=== PATIENT | male | born 1955 | race Caucasian/White ===

== ENCOUNTER 2018-03-22 15:19 | Inpatient (IN) | payer OTHER ==
[~2018-03-22] VITALS: Ht 182.9 cm; Wt 121.1 kg
[~2018-03-22 15:19] MED LIST: ACIPHEX 20 MG T20 MG PO; KEFLEX500 MG PO; KLONOPIN1 MG PO; LISINOPRIL10 MG
[2018-03-22 15:24] VITALS: BP 167/90
[2018-03-22] MEDS ORDERED: HYDROCHLOROTH12.5 M1 PO (15:29)
[2018-03-22] MEDS ORDERED: NORVASC10 MG PO (15:30)
[2018-03-22 15:47] LABS: ABSOLUTE BASOPHILS 0.1 thou/uL (0.0-0.2); ABSOLUTE EOSINOPHILS 0.1 thou/uL (0.0-0.7); ABSOLUTE LYMPHOCYTES 1.4 thou/uL (0.8-5.3); ABSOLUTE NEUTROPHILS 4.4 thou/uL (1.6-8.1); BASOPHILS 0.8 %; EOSINOPHILS 0.7 %; HEMATOCRIT 41.9 % (42.0-52.0); HEMOGLOBIN 15.1 gm/dL (14.0-18.0); LYMPHOCYTES 20.6 %; MCH 36.3 pg (26.0-34.0); MCHC 35.9 g/dL (28.0-37.0); MCV 101.2 fL (80.0-100.0); MONOCYTES 14.7 %; MPV 7.6 fl. (7.2-11.1); NUCLEATED RBCS 0 /100WBC; PLATELET COUNT* 145 thou/uL (150-400); POLYS 63.2 %; RBC 4.14 mil/uL (4.50-6.00); RDW-CV 13.7 % (10.5-14.5)
[2018-03-22 16:06] LABS: ANION GAP 9 mmol/L (7-16); BUN 17 mg/dL (7-18); CALCIUM 8.7 mg/dL (8.5-10.1); CHLORIDE 88 mmol/L (98-107); CO2 26 mmol/L (21-32); CREATININE 0.8 mg/dL (0.6-1.3); GLUCOSE 103 mg/dL (70-99); SODIUM 123 mmol/L (136-145)
[2018-03-22 16:12] LABS: ALBUMIN 3.8 g/dL (3.4-5.0); ALKALINE PHOSPHATASE 64 U/L (46-116); LIPASE 86 U/L (73-393); NT-PRO BRAIN NAT PEPTIDE 35 pg/mL (<300); SGOT 106 U/L (15-37); SGPT 141 U/L (30-65); TOTAL BILIRUBIN 1.4 mg/dL (<0.1-1.0); TOTAL PROTEIN 7.6 g/dL (6.4-8.2); TROPONIN-I LEVEL <0.06 ng/mL (<0.06)
[2018-03-22 17:58] LABS: POTASSIUM 3.9 mmol/L (3.5-5.1)
[2018-03-22 17:59] LABS: CALCIUM 8.5 mg/dL (8.5-10.1); CREATININE 0.9 mg/dL (0.6-1.3)
[2018-03-22 18:34] VITALS: BP 120/63
--- NOTE | 2018-03-22 18:45 | NUR ---
PT TO ROOM 221 VIA CART. PT ORIENTED TO ROOM. CALL LIGHT WITHIN REACH. NSR. DENIES CP
[2018-03-22 18:52] VITALS: BP 142/106
[2018-03-22 19:36] LABS: POTASSIUM 4.1 mmol/L (3.5-5.1)
[2018-03-23] VITALS: BP 140/78
[2018-03-23 04:46] LABS: HEMATOCRIT 40.7 % (42.0-52.0); HEMOGLOBIN 14.6 gm/dL (14.0-18.0); MCH 37.1 pg (26.0-34.0); MCHC 35.9 g/dL (28.0-37.0); MCV 103.3 fL (80.0-100.0); MPV 7.9 fl. (7.2-11.1); RBC 3.94 mil/uL (4.50-6.00); RDW-CV 14.2 % (10.5-14.5); WBC 6.2 thou/uL (4.0-11.0)
[2018-03-23 04:47] VITALS: BP 149/75
[2018-03-23 05:12] LABS: ALBUMIN 3.7 g/dL (3.4-5.0); CALCIUM 8.7 mg/dL (8.5-10.1); CREATININE 0.8 mg/dL (0.6-1.3); MAGNESIUM 2.4 mg/dL (1.8-2.4); POTASSIUM 4.3 mmol/L (3.5-5.1); TOTAL BILIRUBIN 1.5 mg/dL (<0.1-1.0); TOTAL PROTEIN 7.2 g/dL (6.4-8.2)
--- NOTE | 2018-03-23 05:53 | NUR ---
PATIENT CONT. TO BE SR ON THE MONITOR. TROPONINS COMPLETE AND NEG. DENIES ANY FURTHER COMPLAINTS OF PAIN OR DISCOMFORT. NO SIGN OF DISTRESS.
[2018-03-23 08:30] VITALS: BP 133/72
--- NOTE | 2018-03-23 10:40 | EKG ---
[place] [address] ELECTROCARDIOGRAM REPORT Name: TOBIAS ANAYA Room: [address] IN [facility].#: [id number] Admission: 03/22/18 Attend Phys: Floridalma Smith MD Discharge: Date of : 59 Report #: [id number] THIS REPORT FOR: //name// [facility] ED Test Date: 2018-03-22 Test Time: 15:24:15 Pat Name: TOBIAS ANAYA Department: Room: Gender: M Rail Filler: Josie BENZ : 1955 Requested By: Rashid Paul Order Number: [id number] MD: Lei Mendiola Measurements Intervals Mathews Rate: 82 P: 36 ME: 167 QRS: 1 QRSD: 86 T: 46 QT: 376 QTc: 439 Interpretive Statements Sinus rhythm Compared to ECG 01/30/2014 13:10:17 No significant changes Electronically Signed On 03-23-2018 10:40:28 CDT by Lei Mendiola [email or web address] <ELECTRONICALLY SIGNED> By: Lei Mendiola MD, [facility] 03/23/18 1040 1524 Lei Mendiola MD, FACC /EPI
[2018-03-23 11:31] VITALS: BP 133/72
--- NOTE | 2018-03-23 12:14 | 2DMMODE ---
[place] [address] 2 D/M-MODE ECHOCARDIOGRAM Name: TOBIAS ANAYA Room: [address] IN [facility]#: [id number] Admission: 03/22/18 Attend Phys: Floridalma Smith, Discharge: Date of : 59 Date of Service: 03/23/18 1214 Report #: [id number] THIS REPORT FOR: //name// APPROVED REPORT Study performed: 03/23/2018 10:51:46 EXAM: Comprehensive 2D, Doppler, and color-flow Echocardiogram Patient Location: In-Patient Room #: [facility] Status: routine BSA: 2.34 HR: 88 bpm BP: 133/72 mmHg Rhythm: NSR Other Information Study Quality: Good Indications Chest Pain 2D Dimensions LVEF(%): 70.23 (>50%) IVSd: 13.02 (7-11mm) LVOT Diam: 19.77 (18-24mm) LVDd: 46.17 mm PWd: 10.72 (7-11mm) Ascending Ao: 30.77 (22-36mm) LVDs: 27.87 (25-40mm) Aortic Root: 32.99 mm Jaime's LVEF: 70.23 % Volumes Left Atrial Volume (Systole) LA ESV Index: 19.20 mL/m2 Aortic Valve AoV Peak Javad.: 2.30 m/s AO Peak Gr.: 21.23 mmHg LVOT Max P.59 mmHg AO Mean Gr.: 11.72 mmHg LVOT Mean P.09 mmHg LVOT Max V: 1.84 m/s AO V2 VTI: 39.89 cm LVOT Mean V: 1.12 m/s LUIZA (VTI): 2.64 cm2 LVOT V1 VTI: 34.33 cm Mitral Valve E/A Ratio: 1.24 [place] [address] 2 D/M-MODE ECHOCARDIOGRAM Name: TOBIAS ANAYA Room: [address] IN .R.#: [id number] Admission: 03/22/18 Attend Phys: Floridalma Smith, Discharge: Date of : 59 Date of Service: 03/23/18 1214 Report #: [id number] MV Decel. Time: 169.90 ms MV E Max Javad.: 1.17 m/s MV PHT: 49.27 ms MVA (PHT): 4.47 cm2 TDI E/Lateral E': 6.16 E/Medial E': 6.16 Medial E' Javad.: 0.19 m/s Lateral E' Javad.: 0.19 m/s Pulmonary Valve PV Peak Javad.: 1.55 m/s PV Peak Gr.: 9.56 mmHg Left Ventricle The left ventricle is normal size. There is normal LV segmental wall motion. There is normal left ventricular wall thickness. Left ventricular systolic function is normal. The left ventricular ejection fraction is within the normal range. LVEF is 60-65%. The left ventricular diastolic function is normal. Right Ventricle The right ventricle is normal size. The right ventricular systolic function is normal. Atria The left atrium size is normal. The right atrium size is normal. Aortic Valve The aortic valve is normal in structure. mild left ventricular outflow tract gradient noted No aortic regurgitation is present. There is no aortic valvular stenosis. Mitral Valve The mitral valve is normal in structure. There is no mitral valve regurgitation noted. No evidence of mitral valve stenosis. Tricuspid Valve The tricuspid valve is normal in structure. Unable to assess PA pressure. Trace tricuspid regurgitation. Pulmonic Valve Pulmonic valve is not well visualized. There is no pulmonic valvular regurgitation[place] [address] 2 D/M-MODE ECHOCARDIOGRAM Name: TOBIAS ANAYA Room: [address] IN [facility]#: [id number] Admission: 03/22/18 Attend Phys: Floridalma Smith, Discharge: Date of : 59 Date of Service: 03/23/18 1214 Report #: [id number] The aortic root is normal in size. IVC is normal in size and collapses with >50% inspiration Pericardium There is no pericardial effusion. <Conclusion> LVEF is 60-65%. The aortic valve is normal in structure. mild left ventricular outflow tract gradient noted <ELECTRONICALLY SIGNED> By: Lei Mendiola MD, [facility] 03/23/18 1214 13 13 Lei Mendiola MD, FACC /INF
--- NOTE | 2018-03-23 12:50 | CON ---
[address] [address] CONSULTATION Name: TOBIAS ANAYA Room: [address] IN [facility].#: [id number] Admission: 03/22/18 Attend Phys: Floridalma Smith MD Discharge: 03/23/18 Date of : 59 Report #: [id number] THIS REPORT FOR: //name// CC: Partha Smith DATE OF SERVICE: 03/23/2018 HISTORY OF PRESENT ILLNESS: The patient is a 62-year-old white male who I was asked to see in the hospital today after he was admitted yesterday complaining of an aching in his chest. The patient has no previous history of heart disease. He does have a history of hypertension. He is not very active and is overweight, standing 6 feet tall and weighing 255 pounds. He also smokes half pack of cigarettes a day. He states he was doing well until the past few days. He has felt cramps all over his body. He just did not feel well. He noted some ache in his chest, lasted about 3 days. He had no recent trauma to his chest. Denied any rash. He has had no change in appetite or blood in the stool. He does have a chronic cough, but no fever. He has had no edema. PAST MEDICAL HISTORY: Significant for tonsillectomy, appendectomy, sinus surgery, hypertension, no history of diabetes, hyperlipidemia. MEDICATIONS: On admission consisted of hydrochlorothiazide 12.5 mg a day, amlodipine 10 mg a day, Klonopin. He previously was on lisinopril. ALLERGIES: He has no known drug allergies. FAMILY HISTORY: Negative for heart disease. SOCIAL HISTORY: He is . He is not working at this time. 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 His worked for the [employer]. She is now retired. They live in [place]. He smokes half pack of cigarettes a day, 3-4 drinks of alcohol a day. FAMILY HISTORY: Negative for heart disease. REVIEW OF SYSTEMS: He has had no history of stroke. He does have a chronic cough. He occasionally snores at night. No history of peptic ulcer disease, liver disease, kidney disease, cancer, psychiatric illness, chronic skin condition. PHYSICAL EXAMINATION: GENERAL: Showed a large middle-aged male, lying in bed. He appeared in no distress. VITAL SIGNS: He had blood pressure 140/80, pulse 80. [place] [address] CONSULTATION Name: TOBIAS ANAYA [place] Room: [address]#: [id number] Admission: 03/22/18 Attend Phys: Floridalma Smith MD Discharge: 03/23/18 Date of : 59 Report #: [id number] HEENT: He was anicteric. Conjunctivae pink. Mucous membranes appeared moist. NECK: Veins are difficult to assess due to obesity. No carotid bruits heard. CHEST: Without wheezes. HEART: Regular rate and rhythm. No rub or murmur. ABDOMEN: Obese, soft, nontender. EXTREMITIES: Had no pitting edema. Posterior tibial pulse 2+ bilaterally. SKIN: Warm, dry. NEUROLOGIC: Nonfocal. LYMPHATICS: No adenopathy. MUSCULOSKELETAL: No joint effusion. PSYCHIATRIC: He appeared somewhat depressed. LABORATORY DATA: His ECG on admission showed sinus rhythm. There was no ST or T-wave change. His workup in the Emergency Room, he had a chest x-ray that showed no acute abnormality. He had a previous CT scan of the chest done in 2013 that showed coronary artery calcifications. No pulmonary embolus. Fatty infiltration of the liver. Previous lab work done yesterday, sodium 130, potassium 4.3, creatinine 0.8, glucose 99. Liver function studies were normal. Troponin 0.06. His white blood cell count 6.2, hemoglobin 14.6, MCV 103. IMPRESSION AND RECOMMENDATIONS: 1. Chest aching. Coronary artery disease noted on previous CT scan of the chest. Recommend dobutamine echo. 2. Muscle cramps. Reason unclear. Possibly dehydrated. 3. Hypertension. The patient has been on calcium rick and diuretic. 4. Tobacco abuse. 5. Chronic bronchitis. 6. Obesity. I would recommend diet and exercise in an effort to lose weight. <ELECTRONICALLY SIGNED> By: Lei Mendiola MD, [facility] 03/23/18 1250 0856 [id number] Mendiola MD, [facility] /nt
--- NOTE | 2018-03-23 14:41 | NUR ---
ASSUMED PT CARE AT 0730, FULL ASSESMENT DONE CHARTED. PT A/O X4, DENIES CHEST PAIN THIS AM. PT WANTS TO EAT. HE WAS NPO FOR ABD US. PTS VSS, SR/PVC ON THE MONITOR. CARDIOLOGY CONSULT DONE, OK WITH DC TODAY, RECIEVED DISCHARGE ORDERS FROM DR MC. PT EDUCATED ON DISCHARGE INSTRUCTIONS. PT LEFT UNIT AT APPROX 1230 WITH .
[2018-03-23 16:15] LABS: HEPATITIS B SURFACE AG Negative (Negative)
== END 2018-03-23 12:38 | disposition home or self-care (01) | DRG 641 ==
LOC: M.ERS 15:19 → M.TBA-ER 16:49 → M.2W 16:49
PROVIDERS: Emergency Medicine Emergency Medical Services; ADMIT Internal Medicine
DX: E87.1 Hypo-osmolality and hyponatremia (principal); M79.1 Myalgia; X30.XXXA Exposure to excessive natural heat, initial encounter; I10 Essential (primary) hypertension; E78.5 Hyperlipidemia, unspecified; F17.210 Nicotine dependence, cigarettes, uncomplicated; J42 Unspecified chronic bronchitis; E66.9 Obesity, unspecified; Z68.36 Body mass index [BMI] 36.0-36.9, adult; Z90.49 Acquired absence of other specified parts of digestive tract; Y93.89 Activity, other specified; Y92.59 Other trade areas as the place of occurrence of the external cause; Y99.8 Other external cause status

== ENCOUNTER 2019-08-19 02:45 | Inpatient (IN) | payer OTHER ==
[~2019-08-19] VITALS: Ht 182.9 cm; Wt 124.7 kg
[2019-08-19] VITALS (24 sets, daily range): BP systolic 82–146; BP diastolic 31–76
--- NOTE | ~2019-08-19 | PROC ---
[address] [address] PROCEDURE REPORT Name: TOBIAS ANAYA Room: [address] ADM IN M.R.#: [id number] Admission: 08/19/19 Attend Phys: Savannah quispe Peru Discharge: Date of : 59 Report #: [id number] THIS REPORT FOR: //name// For GI report, please see the Provation report in Perceptive 7 content. By: 0655Medical Records Staff MARIA INES /SUSI
[~2019-08-19 02:45] MED LIST changes: +HYDROCHLOROTH12.5 M1 PO; +NORVASC10 MG PO
[2019-08-19 03:16] LABS: ABSOLUTE EOSINOPHILS 0.1 thou/uL (0.0-0.7); ABSOLUTE MONOCYTES 0.7 thou/uL (0.0-1.2); ABSOLUTE NEUTROPHILS 6.6 thou/uL (1.6-8.1); BASOPHILS 0.3 %; EOSINOPHILS 0.9 %; HEMATOCRIT 37.5 % (42.0-52.0); HEMOGLOBIN 13.1 gm/dL (14.0-18.0); MCH 35.2 pg (26.0-34.0); MCHC 34.8 g/dL (28.0-37.0); MCV 101.1 fL (80.0-100.0); MPV 8.6 fl. (7.2-11.1); NUCLEATED RBCS 0 /100WBC; PLATELET COUNT* 133 thou/uL (150-400); POLYS 70.8 %; RBC 3.71 mil/uL (4.50-6.00); RDW-CV 15.1 % (10.5-14.5); WBC 9.4 thou/uL (4.0-11.0)
[2019-08-19 03:31] LABS: CALCIUM 7.8 mg/dL (8.5-10.1); CREATININE 1.4 mg/dL (0.6-1.3); POTASSIUM 3.9 mmol/L (3.5-5.1)
[2019-08-19 03:32] LABS: INR 1.5; PROTIME 14.8 Seconds (9.20-11.50)
[2019-08-19 03:35] LABS: ALBUMIN 2.6 g/dL (3.4-5.0); TOTAL BILIRUBIN 5.2 mg/dL (<0.1-1.0); TOTAL PROTEIN 7.2 g/dL (6.4-8.2)
--- NOTE | 2019-08-19 07:05 | NUR ---
THIS NURSE RECEIVED REPORT FROM WENDY WILSON. THIS NURSE TO ASSUME PT CARE AT THIS TIME.
--- NOTE | 2019-08-19 07:05 | NUR ---
THIS NURSE RECEIVED REPORT FROM WENDY WILSON. THIS NURSE TO ASSUME PT CARE AT THIS TIME.
--- NOTE | 2019-08-19 07:35 | NUR ---
THIS NURSE GAVE REPORT TO WENDY STONE WHO IS TO ASSUME PT CARE INPATIENT NURSE.
--- NOTE | 2019-08-19 07:35 | NUR ---
REPORT GIVEN TO WENDY APPLE WHO IS TO ASSUME PT CARE INPATIENT NURSE.
--- NOTE | 2019-08-19 11:01 | EKG ---
[place] [address] ELECTROCARDIOGRAM REPORT Name: TOBIAS ANAYA Room: [address] ADM IN M.R.#: [id number] Admission: 08/19/19 Attend Phys: Savannah Hull Discharge: Date of : 59 Report #: [id number] THIS REPORT FOR: //name// [facility] ED Test Date: 2019-08-19 Test Time: 02:57:50 Pat Name: TOBIAS ANAYA Department: Room: [facility] Gender: M Veterinary Technician Assistant: [place] : 1955 Requested By: Maricarmen Rivera Order Number: [id number] MD: Lei Mendiola Measurements Intervals [place] Rate: 110 P: 58 TN: 134 QRS: -8 QRSD: 99 T: 42 QT: 367 QTc: 497 Interpretive Statements Sinus tachycardia Low voltage, precordial leads Borderline prolonged QT interval Baseline wander in lead(s) II,III,V3 Compared to ECG 03/22/2018 15:24:15 Low QRS voltage now present Sinus rhythm no longer present Electronically Signed On 08-19-2019 11:00:43 HUMAN RESOURCES SPECIALIST by Lei Mendiola [email or web address] <ELECTRONICALLY SIGNED> By: Lei Mendiola MD, [facility] 08/19/19 1100 0257 0257 Lei Mendiola MD, [facility] /EPI
--- NOTE | 2019-08-19 20:24 | NUR ---
Pt admitted to ICU from ED just after change of shift this am. A&O X4, and reports he is "very anxious" upon arrival. Lactic acid critically high, which Dr. Smith is aware. 2 liters NS boluses given, remains on IVF at 100 ml/hr along with Banana bag at 100 ml/hr. Only 250 ml urine output for shift. Small amount of dribbling due to urgency. Between 1800 & 2000, pt up to void approx q 30 minutes, voiding 25-50 ml each time. Bladder scan showed >162 ml, but difficulty getting accurate reading due to large abdomen (obesity & ascites). After some discussion, including importance of accurate I&O, frequency, and sleep interruption, pt reluctantly agreed to have lucero inserted. Pt reports significant discomfort with insertion, but non-traumatic insertion. Sorrento/vince urine filled tubing leading to bag only. Pt c/o feeling as if he needs to urinate immediately after insertion of lucero; insisted on getting up to side of bed to attempt to void. After a few moments, pt reports desire to void is subsiding some. VSS, though BP soft early on in shift (80s/50s). BP has been 100s-120s/50s-60s for much of shift, especially following fluid bolus. Pt to MRI though he was reluctant to agree to scan until some discussion and urging from pt's . CIWA score of 8 R/T some anxiety combined with hallucination this afternoon. Pt reported that the material in the ceiling was moving. Late in shift, pt forgetful of what day it was, or what time of day it was. Otherwise, pt cooperative and pleasant, but seems to be getting more restless. Consults called to nephrology, urology, and gastroenterology. Will continue to monitor.
[2019-08-20] VITALS (21 sets, daily range): BP systolic 106–152; BP diastolic 49–85
[2019-08-20 03:05] LABS: HEMATOCRIT 31.9 % (42.0-52.0); MCH 35.7 pg (26.0-34.0); MCHC 34.6 g/dL (28.0-37.0); MCV 103.1 fL (80.0-100.0); MPV 7.6 fl. (7.2-11.1); RBC 3.1 mil/uL (4.50-6.00); RDW-CV 15.4 % (10.5-14.5); WBC 5.9 thou/uL (4.0-11.0)
[2019-08-20 03:14] LABS: HEMOGLOBIN 11.1 gm/dL (14.0-18.0)
[2019-08-20 03:21] LABS: CALCIUM 7.5 mg/dL (8.5-10.1); CREATININE 1.3 mg/dL (0.6-1.3); MAGNESIUM 1.8 mg/dL (1.8-2.4); POTASSIUM 3.5 mmol/L (3.5-5.1)
--- NOTE | 2019-08-20 06:05 | NUR ---
ASSUMED CARE AT 1910H, ON RA AND TOLERATED BUT HAS SLEEP APNEA.PT BECAME MORE RESTLESS AND HAVING SOME VISUAL HALLUCINATION,PRN MEDS GIVEN.SITTER WITH THE PT.CONTINUE MONITORING AND TOWARD GOALS.
[2019-08-20 10:37] LABS: URINE BLOOD 3+ (Negative); URINE CLARITY CLEAR; URINE COLOR YELLOW; URINE GLUCOSE-RANDOM NEGATIVE (Negative); URINE KETONES TRACE (Negative); URINE PROTEIN 2+ (Negative); URINE SPECIFIC GRAVITY 1.015 (1.005-1.030)
[2019-08-20 10:39] LABS: URINE BILIRUBIN 2+ (Negative); URINE LEUKOCYTES-REFLEX 2+ (Negative); URINE NITRITE-REFLEX POSITIVE (Negative)
[2019-08-20 10:40] LABS: ICTOTEST (BILI CONFIRMATORY) ND (Negative)
[2019-08-20 11:09] LABS: SQUAMOUS 0-3 Few /LPF (0-3)
[2019-08-20 11:10] LABS: BACTERIA-REFLEX 1-9 Few /HPF (None Seen); CASTS None Seen /LPF (None Seen); CRYSTALS None Seen /LPF (None Seen); URINE RBC 3-10 Few /HPF (0-2); URINE WBC-REFLEX 6-15 Few /HPF (0-5)
[2019-08-20 11:11] LABS: HEPATITIS B SURFACE AG Negative (Negative)
--- NOTE | 2019-08-20 11:20 | NUR ---
ICU rounds and assessment: Pt lives at home with . Pt RN left message with pt who has not returned call. Pt currently going through ETOH withdrawal. Pt also has hx of ETOH abuse. SW/CM to remain available to assist with safe dc planning.
--- NOTE | 2019-08-20 16:37 | CON ---
[address] [address] CONSULTATION Name: HÉCTORTOBIAS ROSALES Room: [address] ADM IN M.R.#: [id number] Admission: 08/19/19 Attend Phys: Savannah Hull Discharge: Date of : 59 Report #: [id number] THIS REPORT FOR: //name// CC: Partha Blackmon DATE OF SERVICE: 08/19/2019 LOCATION: ICU bed #5. I am asked to see this 64-year-old gentleman at the request of Dr. Blackmon for acute kidney injury. CHIEF COMPLAINT: Nausea, vomiting, abdominal pain, chills and feeling unwell. He was admitted to the hospital today. He has been in contact with several grandchildren who have been acutely ill. HISTORY OF PRESENT ILLNESS: The patient has not felt well in the past couple of days and it has worsened. He does not have any documented fever. He has had nausea, vomiting and abdominal pain. He has a history of heavy alcohol use. His primary physician has been Dr. Singh. He has had some diarrhea. PAST MEDICAL HISTORY: His medical problems include cirrhosis, GI bleeding, head trauma, hyponatremia, laceration, vomiting and diarrhea, history of cirrhosis, ascites. FAMILY HISTORY: Not remarkable for any renal diseases. SOCIAL HISTORY: He is an everyday tobacco user. He smokes cigarettes. He does not have any other drug use. He is alcohol dependent. He drinks several mixed drinks daily and smokes 1 pack of tobacco daily. ALLERGIES: No known drug allergies. MEDICATIONS: Klonopin 1 mg q.8 p.r.n., hydrochlorothiazide 12.5 mg daily and amlodipine 10 mg daily. REVIEW OF SYSTEMS: HEENT: No change in vision or hearing. CARDIAC: No chest pain. PULMONARY: Denies shortness of air. Positive tobacco dependency. GASTROINTESTINAL: Abdominal pain, nausea, vomiting, diarrhea, history of cirrhosis, ascites. GENITOURINARY: He has had newly identified renal mass. He has some bladder thickening noted on his imaging as well. MUSCULOSKELETAL: [place] [address] CONSULTATION Name: TOBIAS ANAYA Room: [address] IN [facility].#: [id number] Admission: 08/19/19 Attend Phys: Savannah Hull Discharge: Date of : 59 Report #: [id number] SKIN: No rash. PSYCHIATRIC: No chronic diagnosed diseases. NEUROLOGIC: No CVA, TIA, seizure disorder or Parkinson's disease. ENDOCRINE: Nondiabetic. No hypothyroidism. HEMATOLOGIC AND LYMPHATIC: No cancer history. Other 14-point review of systems as above. PHYSICAL EXAMINATION: VITAL SIGNS: Show that he has a temperature of 36.9, heart rate 110, respirations 15, blood pressure has been variable 105/60. It has been as low as 92/56, earlier today 84/50 and as low as 82 systolic. His intake and output has not been charted. HEENT: He is atraumatic, normocephalic. Pupils do react to light. NECK: Supple without increased jugular venous pressure. CHEST: Clear. HEART: Regular rhythm. No rubs, no gallops. ABDOMEN: Distended, tender. Bowel sounds are present. EXTREMITIES: Show edema of his lower extremities, soft calves, negative Homans, 2+ femoral pulses distally. Extremities are well perfused. NEUROLOGIC: Cranial nerves, sensory, motor appears at his baseline. PSYCHIATRIC: He is cooperative. SKIN AND EXTREMITIES: No rashes. LABORATORY DATA: Thus far shows a white count of 9400, admitting hemoglobin 13.1, his hematocrit is 37.5, platelets are 133,000. Coags show a PT of 14.8, INR 1.5. Chemistries show a sodium of 138, potassium 3.9, chloride 99, CO2 of 20, BUN and creatinine 28 and 1.4 with a GFR of 51, calcium 7.8, total bilirubin 5.2, elevated liver function studies with AST 173, ALT 62, alkaline phosphatase 104, albumin 2.6, lipase 80. Urine shows that it is pending. Toxicology, alcohol level was very increased. IMAGING STUDIES: Show an abdominal ultrasound done today, left kidney showing a mass 4.9 x 4.2 x 3.7, suspicious for malignancy. Gallbladder is poorly visualized. There is a mass in the urinary bladder noted on ultrasound concerning for bladder tumor. The patient has also had a chest x-ray done today that showed no acute process. He has had an abdominal and pelvic CT scan with IV contrast. This showed diffuse fatty infiltration of his liver with lobulated contour and cirrhosis. Gallbladder is nondistended with small gallbladder calculus, scattered ascites in the abdomen and pelvis. The spleen, pancreas, adrenal glands are normal. Kidneys show a left mid kidney mass suspicious for renal cell carcinoma. Left renal vein enhances normally. There is no significant retroperitoneal adenopathy. Abdominal aorta is unremarkable. Appendix is absent. There is mild diffuse bladder wall thickening. IMPRESSION: 1. Probable acute renal failure on the basis of variable blood pressure and [address] [place] [address] CONSULTATION Name: TOBIAS ANAYA Room: [address] IN M.R.#: [id number] Admission: 08/19/19 Attend Phys: Savannah Patrice Hull Discharge: Date of : 59 Report #: [id number] perfusion and in the setting of ascites, cirrhosis and acute alcoholic liver disease, superimposed on chronic alcoholic liver disease. 2. Left renal mass suspicious for renal cell cancer. 3. Bladder thickening and/or mass. 4. Urology has evaluated the above and we will follow the patient once he is out of acute care and able to have the above needs for diagnosis. The above issues needed to be diagnosed, attended to. 5. Alcohol dependency. 6. Alcoholic liver disease. 7. History of hypertension, now with episodic hypotension. 8. Known cirrhosis and ascites. 9. History of hyperlipidemia. 10. Tobacco dependency. PLAN: We will try to improve renal perfusion. Agree with not continuing his amlodipine, may need midodrine depending on his course and follow up laboratories. He is receiving thiamine and appropriate treatment as well as IV fluids that were given upon admission. He is ordered to have followup laboratories. We will check urine for eosinophils and follow up chemistries tomorrow. Further recommendations to follow. <ELECTRONICALLY SIGNED> By: Josephine Robles MD 08/20/19 1637 1756 [id number] Robles MD /nt
[2019-08-21] VITALS (18 sets, daily range): BP systolic 106–154; BP diastolic 55–95
--- NOTE | 2019-08-21 04:55 | NUR ---
VITALS STABLE, AFEBRILE. PT SLEPT THROUGH THE NIGHT. ON 5-6L O2 PER NC. NO BM, BLOOD TINGED URINE. OTHERWISE UNEVENTFUL NIGHT. Q2 TURNS FOR SKIN INTEGRITY.
[2019-08-21 05:14] LABS: HEMATOCRIT 33.7 % (42.0-52.0); HEMOGLOBIN 11.4 gm/dL (14.0-18.0); MCH 35.8 pg (26.0-34.0); MCV 105.2 fL (80.0-100.0); MPV 7.8 fl. (7.2-11.1); RBC 3.2 mil/uL (4.50-6.00); RDW-CV 15.4 % (10.5-14.5); WBC 7.1 thou/uL (4.0-11.0)
[2019-08-21 05:20] LABS: INR 1.4; PROTIME 13.9 Seconds (9.20-11.50)
[2019-08-21 05:40] LABS: ALBUMIN 2.4 g/dL (3.4-5.0); CALCIUM 7.8 mg/dL (8.5-10.1); CREATININE 1.2 mg/dL (0.6-1.3); MAGNESIUM 2.3 mg/dL (1.8-2.4); POTASSIUM 4.5 mmol/L (3.5-5.1); TOTAL BILIRUBIN 5.8 mg/dL (<0.1-1.0); TOTAL PROTEIN 6.9 g/dL (6.4-8.2)
[2019-08-21 08:09] LABS: CA 19-9 71 U/mL (0-35)
--- NOTE | 2019-08-21 11:11 | NUR ---
ICU rounds: Continue Ativan. Tremors. On clear liquids. No seizure activity. Stable.
--- NOTE | 2019-08-21 20:47 | NUR ---
PT PLACED ON 3L O2 PER NC. DOES OK ON RA WHEN AWAKE, BUT DESATS WHEN SLEEPING.
[2019-08-22] VITALS (10 sets, daily range): BP systolic 112–155; BP diastolic 63–81
[2019-08-22 04:14] LABS: HEMATOCRIT 30.3 % (42.0-52.0); HEMOGLOBIN 10.4 gm/dL (14.0-18.0); MCH 35.9 pg (26.0-34.0); MCHC 34.3 g/dL (28.0-37.0); MCV 104.7 fL (80.0-100.0); MPV 7.6 fl. (7.2-11.1); RBC 2.89 mil/uL (4.50-6.00); RDW-CV 15.2 % (10.5-14.5); WBC 4.8 thou/uL (4.0-11.0)
[2019-08-22 04:43] LABS: ALBUMIN 2.3 g/dL (3.4-5.0); CALCIUM 7.2 mg/dL (8.5-10.1); MAGNESIUM 2.1 mg/dL (1.8-2.4); POTASSIUM 3.9 mmol/L (3.5-5.1); TOTAL BILIRUBIN 4.9 mg/dL (<0.1-1.0); TOTAL PROTEIN 6.3 g/dL (6.4-8.2)
[2019-08-22 04:52] LABS: INR 1.4; PROTIME 14.1 Seconds (9.20-11.50)
--- NOTE | 2019-08-22 05:13 | NUR ---
VITALS STABLE, AFEBRILE. PT ORIENTED TO PLACE, SITUATION AND . PT MORE RESTLESS, DID NOT SLEEP THROUGH MOST OF THE NIGHT. MILD TREMORS, ANXIETY NOTED. DENIES OTHER WITHDRAWAL SYMPTOMS. DOES TRY TO DISCONNECT LINES CONSTANTLY, APPROPRIATE AND EASY TO REORIENT, HOWEVER. OTHERWISE UNEVENTFUL NIGHT. ABLE TO USE CALL LIGHT, ABLE TO TURN SELF IN BED. NO BM, 350 CC BLOOD-TINGED URINE. WILL CONTINUE MONITORING.
--- NOTE | 2019-08-22 09:02 | NUR ---
PATIENT NOW TELE STATUS.
--- NOTE | 2019-08-22 10:13 | NUR ---
ICU rounds: Pt continues with alcohol withdrawal symptoms. Pt nurse reported pt tried to get out of bed and caused his catheter to pull and skin was bleeding. Pt to tele today.
--- NOTE | 2019-08-22 16:21 | NUR ---
VSS, ASSUMED CARE OF PT FROM ICU, ASSESSMENT PERFORMED AND I AGREE WITH ICU FINDINGS. FALL PRECAUTIONS IN PLACE AND CALL LIGHT IN REACH, PT IS CONFUSED AND IMPULSIVE WILL FOLOW WITH HOURLY ROUNDS
[2019-08-23] VITALS: BP 131/66
[2019-08-23 04:00] VITALS: BP 136/63
--- NOTE | 2019-08-23 07:55 | NUR ---
PT WAS VERY IMPULSIVE THROUGH OUT SHIFT. ORIENTED TO SELF AND PLACE. FREQUENTLY TRYING TO CLIMB OUT OF BED. REDIRECTION MINIMALLY EFFECTIVE. PT WAS ALSO ANXIOUS AND/OR AGITATED @ TIMES. AT ONE POINT PT'S SITTER REPORTED PT WAS TALKING TO HIS (WHO WAS NOT IN THE ROOM). OTHER THAN THAT PT SEEMED ORIENTED TO PLACE AND STAFF MOST OF SHIFT. FREQUENT PRN ATIVAN GIVEN FOR ETOH SYMPTOMS. PT WAS ABLE TO REST OFF AND ON. BUT WAS IMPULSIVE EVERY TIME AWAKE. 3 STAFF DID ASSIST PT TO STAND @ ONE POINT HE KEPT ASKING "TO GET OUT OF BED." PT WAS ABLE TO SUPPORT WEIGHT STANDING IN PLACE BUT DIFFICULTY STEPPING CLOSER TO THE HOB. PT DID SEEM MORE RELAXED AFTER BEING ABLE TO GET UP FPR A MOMENT. PT C/O BACK KNEE AND NECK PAIN WHEN ASSISTED TO STAND. VERIFIED WITH PHARMACY TYLENOL OK TO GIVE WITH PT'S LFT'S. ONE PRN DOSE GIVEN WITH LAST PRN ATIVAN. AND DR NOTIFIED PT'S FLUIDS WERE NOT RESUMED AFTER TRANSFERRING TO [facility] AND URINE IN ROCA BAG IS ORANGY-RED DANN. NS RESUMED. CALL LIGHT IN REACH. HOURLY ROUNDING FOR SAFETY.
[2019-08-23 08:00] VITALS: BP 125/85
[2019-08-23 11:53] VITALS: BP 119/71
[2019-08-23 16:16] VITALS: BP 118/69
--- NOTE | 2019-08-23 18:22 | NUR ---
ASSUMED PT CARE AT 0800, AOX SELF, CONFUSED, LETHARGIC. O2 SAT 90'S RA. TRACING SINUS TACH ON TELE. PT COMPLAINS OF BACK PAIN. PT FROM CLEAR LIQUID ADVANCE TO REG DIET. PT HAS ROCA CATH. PT IV ACCESS INTACT, NS RUNNING. PT HAS A SITTER. VSS, AM ASSESSMENT CHARTED, MEDS GIVEN PER MAR. HOURLY ROUNDING, WILL CONTINUE TO MONITOR.
[2019-08-23 20:00] VITALS: BP 134/68
--- NOTE | 2019-08-23 22:46 | CON ---
[address] [address] CONSULTATION Name: HÉCTORTOBIAS ROSALES Room: [address] ADM IN M.R.#: [id number] Admission: 08/19/19 Attend Phys: Savannah Hull Discharge: Date of : 59 Report #: [id number] THIS REPORT FOR: //name// CC: Partha Blackmon DICTATED BY: Makenna Yu [facility] DATE OF SERVICE: 08/20/2019 Please note at the time of this dictation, the patient was seen and physically examined by myself. REASON FOR CONSULTATION: Positive occult and recurrent nausea and vomiting. HISTORY OF PRESENT ILLNESS: This is a 64-year-old male who had been having intractable nausea, vomiting and abdominal pain off and on for the last 6 months with gradually worsening over the last 2 days. He said he had some chills, but no fever and denies any contact with any of his grandchildren. He states he has had a decreased appetite, some early satiety and vomiting with heavy meal intake and occasional diarrhea. He denies any blood in his vomitus or in his stool at the time of admission. It is unclear, obtaining his history at the time at bedside given that he had been given some Ativan for preventing alcohol withdrawal that he is not very conversant at this time and all these have been obtained from the chart. It is unclear he has not been seen by our practice for an EGD or colonoscopy in the past. It is noted on admission that his MELD score is 20 and his discriminant function is 18. At this time, it is noted that he does drink double Han and Coke 2-6 mixed drinks daily and he has been doing this for years, which is obtained from the chart as well. ALLERGIES: No known drug allergies. MEDICATIONS: No medications from home except he has been taking Norvasc, hydrochlorothiazide, and Klonopin p.r.n. for anxiety. PAST MEDICAL HISTORY: Hypertension and hyperlipidemia with some anxiety. PAST SURGICAL HISTORY: Negative. FAMILY HISTORY: Negative for any GI or female cancers. SOCIAL HISTORY: He does smoke a pack per day and hash for some time. He drinks 2-6 double Han and Coke daily and hash for many years, and [place] [address] CONSULTATION Name: TOBIAS ANAYA Room: [address] IN .R.#: [id number] Admission: 08/19/19 Attend Phys: Savannah Hull Discharge: Date of : 59 Report #: [id number] REVIEW OF SYSTEMS: Twelve-point review of systems is essentially negative except what is mentioned in the HPI. PHYSICAL EXAMINATION: VITAL SIGNS: Temperature 36.8, pulse 116, respirations 16, blood pressure 109/64. HEART: Tachycardic, but regular. LUNGS: Diminished, but clear. ABDOMEN: Distended and round. Positive bowel sounds in all 4 quadrants with no tenderness noted. NEUROLOGIC: The patient is very sedated and mumbling periodically. LABORATORY DATA: Hemoglobin on admission was 13, he is 11.1; white count is 5.9, platelets are 92. BUN is 31, creatinine is 1.3, GFR is 56. PT is 14.8, INR is 1.5. His MCV is 103.1, total bilirubin is 5.2, alkaline phosphatase 104, ALT 62, AST is 173. He was positive for occult blood. CT shows cirrhosis, portal hypertension, moderate ascites and some splenomegaly with a left renal mass suspicious for malignancy. Ultrasound Dopplers, poor liver Doppler noted. His MELD was 20, DF is 18. Chest x-ray was negative. IMPRESSION: 1. Nausea and vomiting. 2. Positive occult. 3. Cirrhosis, diffuse fatty liver and ascites. 4. Portal hypertension. 5. Splenomegaly. 6. Thrombocytopenia. 7. Mild anemia. 8. Renal mass. 9. Alcohol abuse, alcohol withdrawal. PLAN: 1. EGD today with Dr. Jon. 2. Pepcid IV. 3. Consider starting octreotide. 4. Further recommendations to be made after the procedure and Dr. Jon sees the patient later today. Thank you for allowing us to participate in this patient's care. Please do not hesitate to call with any questions in regard to this consult. <ELECTRONICALLY SIGNED> By: Waqas Jon DO 08/23/19 [id number] Jon DO /nt
[2019-08-24] VITALS: BP 144/74
--- NOTE | 2019-08-24 03:03 | NUR ---
PT ALERT ORIENTED. ALCOHOL WITH DRAW PROTOCAL IN PLACE. SEIZURE PRECAUTION IN PLACE CIWA SCORES 3,9. ATIVAN GIVEN. 1:1 SITTER WITH PT. PT TURNS SELF IN BED. TELEMETRY SHOWS ST. WCTM
[2019-08-24 04:00] VITALS: BP 136/79
[2019-08-24 04:42] LABS: HEMATOCRIT 31.8 % (42.0-52.0); HEMOGLOBIN 10.9 gm/dL (14.0-18.0); MCH 35.8 pg (26.0-34.0); MCHC 34.4 g/dL (28.0-37.0); MCV 104.3 fL (80.0-100.0); MPV 7.8 fl. (7.2-11.1); RBC 3.05 mil/uL (4.50-6.00); RDW-CV 15.2 % (10.5-14.5); WBC 3.9 thou/uL (4.0-11.0)
[2019-08-24 04:56] LABS: ALBUMIN 2.2 g/dL (3.4-5.0); CALCIUM 7.8 mg/dL (8.5-10.1); CREATININE 0.8 mg/dL (0.6-1.3); POTASSIUM 3.8 mmol/L (3.5-5.1); TOTAL BILIRUBIN 5.1 mg/dL (<0.1-1.0); TOTAL PROTEIN 6.4 g/dL (6.4-8.2)
--- NOTE | 2019-08-24 08:00 | NUR ---
ASSUMED CARE AFTER REPORT APPROX 0730. OX2, MUMBLES WORDS, SOME WORDS INAUDIBLE. ASSESSMENT COMPLETE, VS OBTAINED WNL, CIWA >8. SEIZURE PADS ON BED RAILS. PATIENT EXPRESSES FRUSTRATION OVER HIS SITUATION IN GENERAL. PROVIDED THERAPEUTIC COMMUNICATION TECHNIQUE: LISTENING. SITTER IN ROOM.
[2019-08-24 08:02] VITALS: BP 131/74
[2019-08-24 11:26] LABS: BE 0.4 mmol/L (-2 to +3); PCO2 45.2 mmHg (35.0-45.0); pH 7.376 (7.340-7.450)
[2019-08-24 12:08] VITALS: BP 136/75
--- NOTE | 2019-08-24 13:30 | NUR ---
PATIENT'S SUMMONED THIS NURSE TO ROOM FOR UPDATE. VERY CONCERNED ABOUT RENAL MASS AND A GROWTH ON L SHOULDER WHICH HAS BEEN PRESENT ABOUT 2 MONTHS. SHE INQUIRES ABOUT THE PLAN FOR EVALUATING THE RENAL MASS AND IF THE EGD HAS BEEN DONE. UPDATE GIVEN R/T ALLOWING COGNITIVE STATUS TO GET BETTER. PROVIDED THERAPEUTIC COMMUNICATION TECHNIQUIE: LISTENING, REASSURANCE THAT COMMUNICATION WILL BE ONGOING R/T STATUS OF PROCEDURES.
[2019-08-24 15:51] VITALS: BP 153/78
--- NOTE | 2019-08-24 18:54 | NUR ---
PATIENT WITH SITTER TODAY D/T AGITATION AND RESTLESSNESS, BETTER MANAGED WITH ATIVAN AND SITTER. PATIENT SR ON TELE MONITOR. VISITED THIS AFTERNOON WITH CONCERNS ABOUT GI EVALUATION. NOW UNDERSTANDING PLAN. PATIENT ANSWERS ORIENTATION QUESTIONS WITH VARYING ANSWERS, USUALLY NAME IS CORRECT. APPEARS LESS AGITATED WHEN IS PRESENT. EDUCATION GIVEN R/T WITHDRAWAL. NEEDS REINFORCEMENT. SOME DENIAL ABOUT ETOH USE.
[2019-08-24 20:00] VITALS: BP 116/77
[2019-08-25] VITALS (7 sets, daily range): BP systolic 108–149; BP diastolic 58–83
[2019-08-25 05:24] LABS: HEMATOCRIT 32.1 % (42.0-52.0); HEMOGLOBIN 11.1 gm/dL (14.0-18.0); MCH 35.8 pg (26.0-34.0); MCHC 34.5 g/dL (28.0-37.0); MPV 7.7 fl. (7.2-11.1); RBC 3.09 mil/uL (4.50-6.00); RDW-CV 15.4 % (10.5-14.5); WBC 3.8 thou/uL (4.0-11.0)
[2019-08-25 05:30] LABS: ALBUMIN 2.1 g/dL (3.4-5.0); CALCIUM 7.6 mg/dL (8.5-10.1); CREATININE 0.8 mg/dL (0.6-1.3); MAGNESIUM 1.8 mg/dL (1.8-2.4); POTASSIUM 3.4 mmol/L (3.5-5.1); TOTAL BILIRUBIN 4.6 mg/dL (<0.1-1.0); TOTAL PROTEIN 6.5 g/dL (6.4-8.2)
--- NOTE | 2019-08-25 07:15 | NUR ---
RECIEVED REPORT AND ASSUMED CARE AT 1900. VSS. CARDIAC MONITORING IN PLACE. ASSESSMENT COMPLETED CHARTED. CIWA COMPLETED CHARTED. PRN MEDICATION PER ORDERS. BED LOCKED IN LOWEST POSITION, CALL LIGHT WITHIN REACH, BED ALARM ON. NO ACUTE CHANGES THROUGH THE NIGHT. HOURLY ROUNDING COMPLETED AND ALL NEEDS MET.
--- NOTE | 2019-08-25 08:23 | NUR ---
ASSUMED CARE AFTER REPORT APPROX 0730. PATIENT IS SLEEPING DURING VS EVAL AND PHYSICAL ASSESSMENT. DIESEL DINKEY OPERATOR IN PLACE, SR. CALL LIGHT IN REACH. FREQUENT CHECKS FOR PATIENT WITH HISTORY OF RESTLESSNESS, AGITATION AND VISUAL HALLUCINATIONS.
--- NOTE | 2019-08-26 01:45 | NUR ---
PT ALERT ORIENTED TO SELF AND DATE. PT RESTLESS, IMPULSIVE FREQUENT ATTEMPTS TO GET OOB. FALL PRECAUTIONS IN PLACE. ALCOHOL WITHDRAW PROTOCAL IN PLACE. CIWA SCORES 11. ATIVAN GIVEN 3 TIMES THIS SHIFT. TELEMETRY SHOWS SR. TURNING SELF VERY EASILY. DENIES PAIN. ROCA WITH TEA COLORED URINE. WILL CONTINUE TO MONITOR.
[2019-08-26 03:30] VITALS: BP 147/83
[2019-08-26 04:51] LABS: HEMATOCRIT 32.9 % (42.0-52.0); HEMOGLOBIN 11.3 gm/dL (14.0-18.0); MCH 35.7 pg (26.0-34.0); MCHC 34.4 g/dL (28.0-37.0); MCV 103.7 fL (80.0-100.0); RBC 3.17 mil/uL (4.50-6.00); RDW-CV 15.5 % (10.5-14.5); WBC 3.8 thou/uL (4.0-11.0)
[2019-08-26 05:09] LABS: CALCIUM 7.4 mg/dL (8.5-10.1); CREATININE 0.8 mg/dL (0.6-1.3); MAGNESIUM 1.6 mg/dL (1.8-2.4); POTASSIUM 3.7 mmol/L (3.5-5.1); TOTAL BILIRUBIN 4.3 mg/dL (<0.1-1.0)
--- NOTE | 2019-08-26 05:41 | NUR ---
PT AM MAG 1.6. 2 GRAM REPLACEMENT IV INFUSING. PT THROWING LEGS OVER BED. TURNING SIDEWAYS AND MULTIPUL ATTEMPTS TO GET OOB. ATIVAN GIVEN 6 TIMES THIS SHIFT. PT FINALLY SOMEWHAT CALMER.
[2019-08-26 08:00] VITALS: BP 123/69
--- NOTE | 2019-08-26 15:17 | NUR ---
Cm spoke with Pt regarding dispo, discussed recommendation of SNF at [facility], Pt states that he hopes to go home, but was in agreement with CM faxing referrals to [facility] and [facility], just in case. CM faxed, following.
[2019-08-26 16:02] VITALS: BP 138/66
--- NOTE | 2019-08-26 18:51 | NUR ---
PT VSS, SR TO ST ON TELE, ORIENTED TO SELF, PLACE AND TIME, NOT SITUATION. WITHDRAWAL SCORE OF 3. PATIENT IS REPORTING "HIS BACK IS ITCHING." UP WITH ONE, SEIZURE PRECAUTIONS IN PLACE. DIET ADVANCED TO HEART HEALTHY. HOURLY ROUNDING PERFORMED, POSSESSIONS AND CALL LIGHT WITHIN REACH. PATIENT STILL VERY INPULSIVE BUT NOW REDIRECTABLE.
[2019-08-26 20:00] VITALS: BP 136/59
[2019-08-27] VITALS: BP 105/53
--- NOTE | 2019-08-27 01:27 | NUR ---
PT ALERT CONFUSED. MUCH CALMER THAN THE LAST NIGHT. SEVERAL ATTEMPTS TO GET OOB. ATIVAN GIVEN FOR CIWA 8. PT RESPONDING BETTER TO THE ATIVAN THAN THE PREVIOUS NIGHT. PT TURNS SELF IN BED. ON RA. TELEMETRY SHOWS SR. DENIES PAIN. WCTM
--- NOTE | 2019-08-27 02:57 | NUR ---
PT INCREASED AGGITATION. HE IS TRYING TO CLIMB OUT AT THE END OF THE BED. PULLING TELEMETRY OFF AND PULLING AT PLUGS IN THE WALL. LAST CIWA 15. LORAZAPAM GIVEN AGAIN. SEEMS A LITTLE CALMER.
[2019-08-27 04:00] VITALS: BP 137/70
[2019-08-27 05:17] LABS: HEMATOCRIT 30.4 % (42.0-52.0); HEMOGLOBIN 10.8 gm/dL (14.0-18.0); MCH 36.4 pg (26.0-34.0); MCHC 35.4 g/dL (28.0-37.0); MCV 102.7 fL (80.0-100.0); MPV 7.8 fl. (7.2-11.1); RBC 2.96 mil/uL (4.50-6.00); RDW-CV 15.2 % (10.5-14.5)
[2019-08-27 05:39] LABS: CALCIUM 7.6 mg/dL (8.5-10.1); CREATININE 0.8 mg/dL (0.6-1.3); MAGNESIUM 1.8 mg/dL (1.8-2.4); POTASSIUM 3.3 mmol/L (3.5-5.1); TOTAL BILIRUBIN 3.9 mg/dL (<0.1-1.0); TOTAL PROTEIN 5.9 g/dL (6.4-8.2)
[2019-08-27 07:30] VITALS: BP 146/83
--- NOTE | 2019-08-27 09:52 | NUR ---
ASSUMED PT CARE AT 0800, ALERT AWAKE, CONFUSED. O2 SAT 90'S RA. TRACING SINUS RHYTHM ON TELE. PT COMPLAINS OF BACK PAIN. PT BILATERAL EDEMA NOTED. PT HAS ROCA CATH. PT IV ACCESS INTACT. VSS, MEDS GIVEN PER MAR, AM ASSESSMENT CHARTED. CALL LIGHT WITHIN REACH, WILL CONTINUE TO MONITOR.
[2019-08-27 11:46] VITALS: BP 147/89
--- NOTE | 2019-08-27 13:44 | NUR ---
[facility] is unable to accept Pt for skilled. Continue to await to hear back from [facility]. Referrals sent to [facility] and [facility]
[2019-08-27 15:31] VITALS: BP 125/69
[2019-08-27 20:00] VITALS: BP 136/70
[2019-08-28] VITALS: BP 120/76
[2019-08-28 04:00] VITALS: BP 137/72
--- NOTE | 2019-08-28 05:02 | NUR ---
PT HAD EPISODE OF AGGRESIVE BEHAVIOR, RECIEVED ORDER TO ONETIME DOSE HALDOL, EFFECTIVE IN CALMING THE PT. PT BACK IN BED WITH BED ALARM ON AND CALL LIGHT WITHIN REACH. PT IS IN VIEW FROM NURSES STATION.
[2019-08-28 08:14] VITALS: BP 138/78
[2019-08-28 11:00] VITALS: BP 129/63
--- NOTE | 2019-08-28 12:19 | NUR ---
VSS, ASSUMED CARE IN THE AM, ASSESSMENT PERFORMED AND CHARTED, FALL PRECAUTIONS IN PLACE AND CALL LIGHT IN REACH, PT IS A&O4 BUT IMPULSVE AT TIMES, PT IS TRACING SR ON THE MONITOR, ON RA AND IS UP WITH ONE ASSIST, PT DENIES ANY PAIN AND HIS GOAL IS SAFETY AND D/C ROCA, WILL FOLLOW WITH PLAN OF CARE.
--- NOTE | 2019-08-28 15:07 | PATH ---
[facility] [address] [place] [address] PATHOLOGY RPT PROCEDURE Name: TOBIAS ZAMUDIO Room: [address] ADM IN M.R.#: [id number] Admission: 08/19/19 Date of : 59 Discharge: Report #: [id number] Path Case #: [id number] [facility] Accession Number: [id number] . 01 Material submitted: . PART A: stomach - BIOPSY OF ANTRAL ULCERS PART B: stomach - BIOPSY OF GASTRIC BODY OF STOMACH FOR GASTRITIS. Modifiers: body PART C: duodenum - BIOPSY OF DUODENAL ULCERS . 01 Clinical history: . None provided . 02 Diagnosis: A. Biopsy of antral ulcers: - Moderate non-specific chronic and active antral gastritis, negative for Helicobacter pylori organisms, granulomas and dysplasia. . B. Biopsy of gastric body of stomach for gastritis: - Moderate non-specific chronic gastritis, negative for Helicobacter pylori organisms, granulomas and dysplasia. . C. Duodenal ulcers: - Moderate active duodenitis with fundic metaplasia suggesting peptic ulcer disease, negative for granulomas, viral inclusions and dysplasia/adenomatous change. ([facility]UANACO/db; 08/28/2019) LBQ 08/28/2019 1105 Local . 02 Comment: Special stains on A and B: H. pylori immunos . 02 Electronically signed: . Steve Varela MD, Pathologist NPI- [id number] . 01 Gross description: . A. Received in formalin labeled "Tobias Zamudio, biopsy of antral ulcers," are two segments of pale roy soft tissue measuring 0.4 x 0.2 x 0.1 cm and 0.6 x 0.2 x 0.1 cm in greatest dimensions. The specimen is submitted entirely in cassette A1. . B. Received in formalin labeled "Tobias Zamudio, biopsy of gastric body of stomach for gastritis," are four segments of roy-brown soft tissue measuring 0.7 x 0.6 x 0.1 cm in aggregate dimensions and ranging from 0.2 to 0.5 cm in maximum dimension. The specimen is submitted entirely in cassette B1[place] [address] PATHOLOGY RPT PROCEDURE Name: TOBIAS ZAMUDIO Room: [address] IN .R.#: [id number] Admission: 08/19/19 Date of : 59 Discharge: Report #: [id number] Path Case #: [id number] C. Received in formalin labeled "Tobias Zamudio, biopsy of duodenal ulcers," are three fragments of roy-brown soft tissue measuring 0.5 x 0.4 x 0.2 cm in aggregate dimensions and ranging from 0.1 to 0.3 cm in maximum dimension. The specimen is submitted entirely in cassette C1. The smallest fragment may not survive processing. ([facility]; 08/27/2019) XDC/XDC 08/27/2019 0814 Local . 02 Pathologist provided ICD-10: K29.50, K29.80 . 02 CPT . 365422, 210128, 726628, Y63652 Specimen Comment: Report sent to , Dr.DE DANNY ALCANTARA and Performed at: [address], [place], [place] [id number] MD Jose A Moreno MD Phone: [phone] Performed at: 02 [facility] [address] [place], [place], [place] [id number] MD Steve Varela MD Phone: [phone]
[2019-08-28 16:36] VITALS: BP 127/60
[2019-08-28 20:00] VITALS: BP 119/62
[2019-08-29] VITALS: BP 116/54
--- NOTE | 2019-08-29 03:57 | NUR ---
PT ALERT ORIENTED. TURNS SELF IN BED. CLONAZEPAM GIVEN ONCE. BENADRYL 25MG GIVEN TWICE. PT HAS VOIDED LARGE AMT. UNABLE TO MEASURE BC MOST OF IT WENT ON THE FLOOR. TELEMETRY SHOWS SR. FALL PRECAUTIONS IN PLACE.
[2019-08-29 04:00] VITALS: BP 107/58
[2019-08-29 05:08] LABS: HEMATOCRIT 30.3 % (42.0-52.0); HEMOGLOBIN 10.8 gm/dL (14.0-18.0); MCH 36.6 pg (26.0-34.0); MCHC 35.5 g/dL (28.0-37.0); MPV 8.4 fl. (7.2-11.1); RBC 2.94 mil/uL (4.50-6.00); RDW-CV 15.4 % (10.5-14.5)
[2019-08-29 05:19] LABS: CALCIUM 8.1 mg/dL (8.5-10.1); CREATININE 0.9 mg/dL (0.6-1.3); MAGNESIUM 1.6 mg/dL (1.8-2.4); POTASSIUM 3.4 mmol/L (3.5-5.1)
[2019-08-29 07:00] VITALS: BP 117/65
[2019-08-29 11:47] VITALS: BP 135/71
[2019-08-29 16:00] VITALS: BP 122/70
[2019-08-29 20:54] VITALS: BP 116/75
[2019-08-30] VITALS: BP 103/48
[2019-08-30 04:02] LABS: HEMOGLOBIN 10.8 gm/dL (14.0-18.0); MCH 35.6 pg (26.0-34.0); MCHC 34.8 g/dL (28.0-37.0); MCV 102.3 fL (80.0-100.0); MPV 8.1 fl. (7.2-11.1); RBC 3.03 mil/uL (4.50-6.00); RDW-CV 14.9 % (10.5-14.5); WBC 4.2 thou/uL (4.0-11.0)
[2019-08-30 04:19] LABS: CREATININE 0.9 mg/dL (0.6-1.3); MAGNESIUM 1.5 mg/dL (1.8-2.4); POTASSIUM 3.7 mmol/L (3.5-5.1)
--- NOTE | 2019-08-30 07:46 | NUR ---
Pt reports he rested well overnight. Pt set off bed alarm 2-3 times when he attempted to get up to go to the bathroom. Incontinent of urine on at least one occasion due to urgency and "inability to hold it." Pt somewhat unsteady on his feet at times. VSS. Will continue to monitor.
[2019-08-30 08:44] VITALS: BP 118/66
[2019-08-30] MEDS ORDERED: XIFAXAN550 M1 PO (09:22)
[2019-08-30] MEDS ORDERED: PANTOPRAZOLE SO40 M1 PO (09:22)
[2019-08-30] MEDS ORDERED: SPIRONOLACTONE25 MG PO (09:22)
[2019-08-30] MEDS ORDERED: CARAFATE 1 GM TA1 G1 PO (09:22)
[2019-08-30] MEDS ORDERED: LASIX 20 MG TAB20 MG PO (09:22)
[2019-08-30] MEDS ORDERED: LACTULOSE20 GM/30 M PO (09:22)
[2019-08-30 09:48] VITALS: BP 118/66
[2019-08-30 10:07] VITALS: BP 118/66
--- NOTE | 2019-08-30 10:14 | NUR ---
ASSUMED PT CARE AT 0830, AOX4, UP SBA , O2 SAT 90'S RA. MED SURG. PT DENIES PAIN. PT STATE HE FEELS BETTER. PT FOR DISCHARGE. AM ASSESSMENT CHARTED. MEDS GIVEN PER MAR. CALL LIGHT WITHIN REACH. WILL CONTINUE TO MONITOR.
--- NOTE | 2019-08-30 11:08 | NUR ---
Pt discharging to home today, faxed HH orders to [facility]. Faxed walker order to provider plus, walker can be dispensed, updated nurse, copy on front of Pt's chart
--- NOTE | 2019-08-30 12:43 | NUR ---
DISCHARGE PLAN DISCUSSED WITH THE PT. MEDICATION PACKET/SCRIPT GIVEN. PT ASVISED TO FOLOOW UP WITH PCP, GI, RENAL. PT EDUCATE ABOUT SMOKING CESSATION, QUIT DRINKING ALCOHOL. COMMUNICATE UNDERSTANDING. IV REMOVED. ALL BELONGONGS PACKED AND CHECKED. LEFT THE UNIT AT 1245.
== END 2019-08-30 12:50 | disposition home health service (06) | DRG 871 ==
LOC: M.ERS 02:45 → M.TBA-ER 05:08 → M.ICU 05:08 → M.2W 08-22 14:59
PROVIDERS: Emergency Medicine; Internal Medicine; Internal Medicine Gastroenterology; ADMIT Family Medicine
PROC: 0DB98ZX Excision of Duodenum, Via Natural or Artificial Opening Endoscopic, Diagnostic (ICD-10-PCS; principal; 2019-08-26)
PROC: 0DB78ZX Excision of Stomach, Pylorus, Via Natural or Artificial Opening Endoscopic, Diagnostic (ICD-10-PCS; principal; 2019-08-26)
DX: A41.9 Sepsis, unspecified organism (principal); G93.41 Metabolic encephalopathy; K65.2 Spontaneous bacterial peritonitis; K29.71 Gastritis, unspecified, with bleeding; K25.4 Chronic or unspecified gastric ulcer with hemorrhage; K26.4 Chronic or unspecified duodenal ulcer with hemorrhage; F10.239 Alcohol dependence with withdrawal, unspecified; N17.9 Acute kidney failure, unspecified; K76.6 Portal hypertension; K70.31 Alcoholic cirrhosis of liver with ascites; K21.0 Gastro-esophageal reflux disease with esophagitis; I10 Essential (primary) hypertension; E78.5 Hyperlipidemia, unspecified; F17.210 Nicotine dependence, cigarettes, uncomplicated; N28.89 Other specified disorders of kidney and ureter; F41.9 Anxiety disorder, unspecified; R16.1 Splenomegaly, not elsewhere classified; D69.6 Thrombocytopenia, unspecified; K44.9 Diaphragmatic hernia without obstruction or gangrene; D64.9 Anemia, unspecified; N32.9 Bladder disorder, unspecified; B19.20 Unspecified viral hepatitis C without hepatic coma; M19.012 Primary osteoarthritis, left shoulder; Z79.899 Other long term (current) drug therapy; Z90.49 Acquired absence of other specified parts of digestive tract; K70.11 Alcoholic hepatitis with ascites; R31.0 Gross hematuria; K59.00 Constipation, unspecified

== ENCOUNTER 2020-05-15 19:24 | Emergency (ER) | payer OTHER ==
[~2020-05-15] VITALS: Ht 182.9 cm; Wt 90.7 kg
[~2020-05-15 19:24] MED LIST changes: +CARAFATE 1 GM TA1 G1 PO; +LACTULOSE20 GM/30 M PO; +LASIX 20 MG TAB20 MG PO; +PANTOPRAZOLE SO40 M1 PO; +SPIRONOLACTONE25 MG PO; +XIFAXAN550 M1 PO
[2020-05-15] MEDS ORDERED: CLONAZEPAM 0.50.5 M1 PO (19:34)
[2020-05-15 19:59] LABS: ABSOLUTE BASOPHILS 0.1 thou/uL (0.0-0.2); ABSOLUTE EOSINOPHILS 0.2 thou/uL (0.0-0.7); ABSOLUTE LYMPHOCYTES 3.5 thou/uL (0.8-5.3); ABSOLUTE MONOCYTES 0.6 thou/uL (0.0-1.2); ABSOLUTE NEUTROPHILS 3.2 thou/uL (1.6-8.1); HEMOGLOBIN 13.2 gm/dL (14.0-18.0); LYMPHOCYTES 46.2 %; MCH 33.3 pg (26.0-34.0); MCHC 36.6 g/dL (28.0-37.0); MCV 90.9 fL (80.0-100.0); MONOCYTES 7.8 %; MPV 6.9 fl. (7.2-11.1); NUCLEATED RBCS 0 /100WBC; PLATELET COUNT* 92 thou/uL (150-400); RBC 3.96 mil/uL (4.50-6.00); RDW-CV 14.6 % (10.5-14.5); WBC 7.6 thou/uL (4.0-11.0)
[2020-05-15 20:02] LABS: CALCIUM 7.6 mg/dL (8.5-10.1); CREATININE 1.1 mg/dL (0.6-1.3)
[2020-05-15 20:05] LABS: APTT 27.4 Seconds (25.0-31.3); INR 1.1; PROTIME 11.6 Seconds (9.20-11.50)
[2020-05-15 20:17] LABS: ALBUMIN 3.5 g/dL (3.4-5.0); CK-MB MASS 2.2 ng/mL (<0.5-3.6); MAGNESIUM 1.6 mg/dL (1.8-2.4); TOTAL BILIRUBIN 0.8 mg/dL (<0.1-1.0); TOTAL PROTEIN 7.7 g/dL (6.4-8.2)
[2020-05-15 20:58] VITALS: BP 159/86
--- NOTE | 2020-05-16 10:10 | EKG ---
[place] [address] ELECTROCARDIOGRAM REPORT Name: TOBIAS ANAYA Room: [facility]#: [id number] Admission: 05/15/20 Attend Phys: Discharge: 05/15/20 Date of : 59 Date of Service: 05/15/201931 Report #: [id number] THIS REPORT FOR: //name// [facility] ED Test Date: 2020-05-15 Test Time: 19:32:19 Pat Name: TOBIAS ANAYA Department: Room: Gender: Material Combiner: [facility] : 1955 Requested By: Uli Joshi Order Number: [id number] MD: Lei Mendiola Measurements Intervals [place] Rate: 115 P: 53 AR: 170 QRS: 15 QRSD: 102 T: 54 QT: 337 QTc: 466 Interpretive Statements Sinus tachycardia Low voltage, extremity leads Baseline wander in lead(s) V3,V4,V5,V6 Compared to ECG 08/19/2019 02:57:50 No significant changes Electronically Signed On 05-16-2020 10:10:08 CDT by Lei Mendiola [email or web address] <ELECTRONICALLY SIGNED> By: Lei Mendiola MD, FAC 05/16/20 1010 31 31 Lei Mendiola MD, [facility] /EPI
== END 2020-05-15 20:59 | disposition left against medical advice (07) ==
LOC: M.ERS 19:24
PROVIDERS: Family Medicine
DX: F10.129 Alcohol abuse with intoxication, unspecified (principal); Y90.8 Blood alcohol level of 240 mg/100 ml or more; R07.89 Other chest pain; I10 Essential (primary) hypertension; E78.5 Hyperlipidemia, unspecified; F17.210 Nicotine dependence, cigarettes, uncomplicated